=== PATIENT | female | born 1980 | race American Indian/Alaskan Native ===

== ENCOUNTER 2018-06-12 15:00 | Emergency (ER) | payer SELFPAY ==
--- NOTE | 2018-06-12 17:33 | Emergency Department Report ---
ED General Adult HPI - General Stated complaint: SYNCOPE Time Seen by Provider: 06/12/18 17:31 - History of Present Illness Initial comments: Patient is a 37-year-old female with past medical history who presents with syncope. Patient was having a D&[facility] done at [facility] and after the procedure she had a syncopal episode. Patient denies being any pain she states that she never lost consciousness she has no nauseousness no shortness of breath. No chest pain. Patient has no vaginal bleeding no dysuria or vaginal discharge. No rectal bleeding no fevers or chills. Patient does not smoke or drink and she is not employed. - Related Data Home Medications Medication Instructions Recorded Confirmed Last Taken Famotidine [Pepcid] 40 mg PO DAILY 06/12/18 06/12/18 Unknown Allergies Allergy/AdvReac Type Severity Reaction Status Date / Time No Known Allergies Allergy Verified 06/12/18 17:31 ED Review of Systems ROS: Stated complaint: SYNCOPE Other details as noted in HPI Constitutional: denies: chills, fever Eyes: denies: eye pain, eye discharge, vision change ENT: denies: ear pain, throat pain Respiratory: denies: cough, shortness of breath, wheezing Cardiovascular: syncope. denies: chest pain, palpitations Endocrine: no symptoms reported Gastrointestinal: denies: abdominal pain, nausea, diarrhea Genitourinary: denies: urgency, dysuria, discharge Musculoskeletal: denies: back pain, joint swelling, arthralgia Skin: denies: rash, lesions Neurological: denies: headache, weakness, paresthesias Psychiatric: denies: anxiety, depression Hematological/Lymphatic: denies: easy bleeding, easy bruising ED Past Medical Hx - Medications Home Medications: Home Medications Medication Instructions Recorded Confirmed Last Taken Type Famotidine [Pepcid] 40 mg PO DAILY 06/12/18 06/12/18 Unknown History ED Physical Exam - General General appearance: alert, in no apparent distress - Head Head exam: Present: atraumatic, normocephalic - Eye Eye exam: Present: normal appearance - ENT ENT exam: Present: mucous membranes moist - Neck Neck exam: Present: normal inspection - Respiratory Respiratory exam: Present: normal lung sounds bilaterally. Absent: respiratory distress - Cardiovascular Cardiovascular Exam: Present: regular rate, normal rhythm. Absent: systolic murmur, diastolic murmur, rubs, gallop - GI/Abdominal GI/Abdominal exam: Present: soft, normal bowel sounds - Extremities Exam Extremities exam: Present: normal inspection - Back Exam Back exam: Present: normal inspection - Neurological Exam Neurological exam: Present: alert, oriented X3 - Psychiatric Psychiatric exam: Present: normal affect, normal mood - Skin Skin exam: Present: warm, dry, intact, normal color. Absent: rash ED Course Vital Signs 06/12/18 06/12/18 06/12/18 17:26 17:30 17:31 Temperature 98.5 F Pulse Rate 74 79 73 Respiratory 20 17 16 Rate Blood Pressure 108/51 89/50 O2 Sat by Pulse 99 98 98 Oximetry 06/12/18 06/12/18 06/12/18 17:38 17:45 18:00 Temperature Pulse Rate 65 82 Respiratory 16 23 22 Rate Blood Pressure 96/56 105/67 O2 Sat by Pulse 98 100 99 Oximetry 06/12/18 18:16 Temperature Pulse Rate 89 Respiratory 23 Rate Blood Pressure 123/36 O2 Sat by Pulse 99 Oximetry ED Medical Decision Making - Lab Data Result diagrams: 06/12/18 18:05 Lab Results 06/12/18 06/12/18 06/12/18 Range/Units 17:28 18:05 18:05 WBC 8.2 (4.5-11.0) K/mm3 RBC 4.25 (3.65-5.03) M/mm3 Hgb 12.2 (10.1-14.3) gm/dl Hct 36.9 (30.3-42.9) % MCV 87 (79-97) fl MCH 29 (28-32) pg MCHC 33 (30-34) % RDW 13.5 (13.2-15.2) % Plt Count 181 (140-440) K/mm3 Lymph % (Auto) 20.3 (13.4-35.0) % [place] % (Auto) 7.4 H (0.0-7.3) % Eos % (Auto) 0.4 (0.0-4.3) % Baso % (Auto) 0.5 (0.0-1.8) % Lymph # 1.7 (1.2-5.4) K/mm3 [place] # 0.6 (0.0-0.8) K/mm3 Eos # 0.0 (0.0-0.4) K/mm3 Baso # 0.0 (0.0-0.1) K/mm3 Seg Neutrophils % 71.4 H (40.0-70.0) % Seg Neutrophils # 5.8 (1.8-7.7) K/mm3 Sodium 135 L (137-145) mmol/L Potassium 4.4 (3.6-5.0) mmol/L Chloride 101.9 (98-107) mmol/L Carbon Dioxide 20 L (22-30) mmol/L Anion Gap 18 mmol/L BUN 9 (7-17) mg/dL Creatinine 0.8 (0.7-1.2) mg/dL Estimated GFR > 60 ml/min BUN/Creatinine Ratio 11 % Glucose 89 (65-100) mg/dL POC Glucose 69 L (70-105) Calcium 9.5 (8.4-10.2) mg/dL Troponin T < 0.010 (0.00-0.029) ng/mL - EKG Data -: EKG Interpreted by Me - EKG Data 06/12/18 18:44 EKG shows normal sinus rhythm and no ST segment elevation or T-wave inversion normal axis. - Medical Decision Making Chief medical diagnosis: Syncope secondary to vasovagal Differential medical diagnosis: Non-STEMI, electrolyte abnormality I will get EKG, troponin, CBC and BMP Patient's blood work is unremarkable I will send patient home due to patient's clinical signs she most likely had vasovagal syncope informed patient. Discussed plan with patient, patient agrees with plan additional verbal discharge instructions were given. Critical care attestation.: If time is entered above; I have spent that time in minutes in the direct care of this critically ill patient, excluding procedure time. ED Disposition Clinical Impression: Vasovagal syncope Disposition: DC-01 TO HOME OR SELFCARE Is pt being admited?: No Does the pt Need Aspirin: No Condition: Stable Instructions: Syncope (ED) Referrals: PRIMARY CARE, [Primary Care Provider] - 3-5 Days GINA DELGADO MD [Staff Physician] - 3-5 Days
[2018-06-12 18:34] LABS: Basophils % (Auto) 0.5 % (0.0-1.8); Eosinophils % (Auto) 0.4 % (0.0-4.3); Hematocrit 36.9 % (30.3-42.9); Hemoglobin 12.2 gm/dl (10.1-14.3); Lymphocytes # (Auto) 1.7 K/mm3 (1.2-5.4); Lymphocytes % (Auto) 20.3 % (13.4-35.0); Mean Corpuscular HGB Conc 33 % (30-34); Mean Corpuscular Hemoglobin 29 pg (28-32); Mean Corpuscular Volume 87 fl (79-97); Monocytes # (Auto) 0.6 K/mm3 (0.0-0.8); Monocytes % (Auto) 7.4 % (0.0-7.3); Platelet Count 181 K/mm3 (140-440); Red Blood Count 4.25 M/mm3 (3.65-5.03); Red Cell Distribution Width 13.5 % (13.2-15.2)
[2018-06-12 18:50] VITALS: BP 101/63
[2018-06-12 18:54] LABS: BUN/Creatinine Ratio 11; Blood Urea Nitrogen 9 mg/dL (7-17); Calcium 9.5 mg/dL (8.4-10.2); Hemolysis Index 31
== END 2018-06-12 19:25 | disposition home or self-care (01) ==
LOC: ED 15:00
DX: R55 Syncope and collapse (principal)
CPT/HCPCS: 36415; 80048; 82962; 84484; 85025; 93005; 93010; 99284